=== PATIENT | male | born 1990 | race Caucasian/White ===

== ENCOUNTER 2019-03-17 14:01 | Emergency (ER) | payer MEDICAID ==
[~2019-03-17] VITALS: Ht 185.4 cm; Wt 70.3 kg
[2019-03-17 14:10] VITALS: BP 142/82
[2019-03-17] MEDS ORDERED: AMOXICILLIN 500 MG CAP PO ONE (14:45)
[2019-03-17 15:04] VITALS: BP 142/82
== END 2019-03-17 15:05 | disposition home or self-care (01) ==
LOC: MED 14:01
DX: K04.7 Periapical abscess without sinus (principal); F17.210 Nicotine dependence, cigarettes, uncomplicated; Z98.890 Other specified postprocedural states
CPT/HCPCS: 99283